=== PATIENT | female | born 1990 ===

== ENCOUNTER 2017-10-04 18:28 | Emergency (ER) | payer SELFPAY ==
[2017-10-04 18:36] VITALS: BMI 32.3
[2017-10-04 18:40] VITALS: BP 126/85; PULSE 86; RESP 18; TEMP 97.9; O2SAT 100
[2017-10-04] MEDS ORDERED: Lidocaine Hydrochloride 5 ML INJ ONE (19:17)
[2017-10-04] MEDS ORDERED: Tdap Vaccine 0.5 ml Vial (10-64 yrs) IM ONE ×2 (19:19→19:33)
[2017-10-04] MEDS ORDERED: Bacitracin 500 Units/gm Oint Foilpak UD TOP ONE (19:19)
[2017-10-04] MEDS ORDERED: Bacitracin 500 Units/gm Oint Foilpak UD ONE (19:33)
--- NOTE | 2017-10-04 20:08 | C.PDOC ---
History Of Present Illness 27 year old female presents to the ED for evaluation of a laceration. Patient reports she sustained a laceration when she accidentally cut her left middle finger today. Patient denies other injury, fever, chills, weakness, numbness. Time Seen by Provider: 10/04/17 19:07 Chief Complaint (Nursing): Abnormal Skin Integrity History Per: Patient History/Exam Limitations: no limitations Current Symptoms Are (Timing): Still Present Location Of Injury: Left: Hand Quality Of Symptoms: Painful Recent travel outside of the [place]: No Additional History Per: Patient Past Medical History Reviewed: Historical Data, Nursing Documentation, Vital Signs Vital Signs: Last Vital Signs Temp 97.9 F 10/04/17 18:36 Pulse 86 10/04/17 18:36 Resp 18 10/04/17 18:36 BP 126/85 10/04/17 18:36 Pulse Ox 100 10/04/17 20:12 - Medical History PMH: No Chronic Diseases Surgical History: No Surg Hx Family History: States: Unknown Family Hx - Social History Hx Alcohol Use: No Hx Substance Use: No - Immunization History Hx Tetanus Toxoid Vaccination: No Hx Influenza Vaccination: No Hx Pneumococcal Vaccination: No Review Of Systems Constitutional: Negative for: Fever, Chills Cardiovascular: Negative for: Chest Pain, Palpitations Respiratory: Negative for: Cough, Shortness of Breath Gastrointestinal: Negative for: Nausea, Vomiting, Abdominal Pain Musculoskeletal: Positive for: Hand Pain Skin: Positive for: Other (laceration) Neurological: Negative for: Weakness, Numbness Physical Exam - Physical Exam Appears: Non-toxic, No Acute Distress Skin: Normal Color, Warm, Dry Head: Atraumatic, Normacephalic Eye(s): bilateral: Normal Inspection Extremity: Normal ROM, No Tenderness, Capillary Refill (< 2 seconds), No Swelling, Other (1.5 cm laceration to left anterior middle finger) Pulses: Left Radial: Normal, Right Radial: Normal Neurological/Psych: Oriented x3, Normal Speech, Normal Motor, Normal Sensation Gait: Steady ED Course And Treatment O2 Sat by Pulse Oximetry: 100 Laceration - Laceration Repair left middle finger Wound Length (In cm): 1.5 Description Of Wound: Linear Wound Cleansed With: Betadine, Sterile Saline Anesthesia: Lidocaine 1% Wound Examination: Irrigated With Saline, No FB With Wound Exploration, No Tendon Injury With Wound Exploration Wound Closure: Suture (three) Suture Technique And Material Used: Interrupted, Nylon (4-o) Wound Complexity: Simple Medical Decision Making Medical Decision Making: Plan: * tetanus immunization * bacitracin Disposition - Disposition Disposition: HOME/ ROUTINE Disposition Time: 20:24 Condition: GOOD Additional Instructions: Wash the wound twice a day, starting on Wednesday. After washing apply bacitracin. sutures to be removed within 7-10 days. return if worsened. Prescriptions: Bacitracin Ointment [Bacitracin] 30 gm TOP BID #1 tube Cephalexin [Keflex] 1,000 mg PO BID #28 capsule Instructions: Laceration Repair Forms: [employer] (Azeri) Print Language: NAMIBIAN - Clinical Impression Clinical Impression: Laceration of finger - PA / CONFERENCE SERVICES DIRECTOR / Resident Statement MD/DO has reviewed & agrees with the documentation as recorded. - Scribe Statement The provider has reviewed the documentation as recorded by the Scribe Zackery Staley All medical record entries made by the Scribe were at my direction and personally dictated by me. I have reviewed the chart and agree that the record accurately reflects my personal performance of the history, physical exam, medical decision making, and the department course for this patient. I have also personally directed, reviewed, and agree with the discharge instructions and disposition.
== END 2017-10-04 20:32 | disposition home or self-care (01) ==
LOC: C.ER 18:28
DX: S61.213A Laceration without foreign body of left middle finger without damage to nail, initial encounter (principal); W26.0XXA Contact with knife, initial encounter; Y93.G3 Activity, cooking and baking

== ENCOUNTER 2017-10-11 14:54 | Emergency (ER) | payer OTHER ==
[2017-10-11 14:54] VITALS: BMI 32.3
[2017-10-11 15:05] VITALS: BP 122/71; PULSE 88; RESP 20; TEMP 98; O2SAT 99
--- NOTE | 2017-10-11 15:18 | C.PDOC ---
History Of Present Illness 27 y/o female presents to ED for suture removal from left 3rd finger placed 1 week ago after sustaining laceration. Patient denies new injury, numbness, weakness or any other complaints at this time. Time Seen by Provider: 10/11/17 15:09 Chief Complaint (Nursing): Suture/Staple Removal History Per: Patient History/Exam Limitations: no limitations Onset/Duration Of Symptoms: Days Ago Current Symptoms Are (Timing): Still Present Past Medical History Reviewed: Historical Data, Nursing Documentation, Vital Signs Vital Signs: Last Vital Signs Temp 98 F 10/11/17 15:02 Pulse 88 10/11/17 15:02 Resp 20 10/11/17 15:02 BP 122/71 10/11/17 15:02 Pulse Ox 99 10/11/17 15:25 - Medical History PMH: No Chronic Diseases Surgical History: No Surg Hx Family History: States: No Known Family Hx - Social History Hx Alcohol Use: No Hx Substance Use: No - Immunization History Hx Tetanus Toxoid Vaccination: No Hx Influenza Vaccination: No Hx Pneumococcal Vaccination: No Review Of Systems Musculoskeletal: Positive for: Hand Pain Skin: Negative for: Rash, Bruising Neurological: Negative for: Weakness, Numbness Physical Exam - Physical Exam Appears: Non-toxic, No Acute Distress Skin: Warm, Dry, No Rash Head: Atraumatic, Normacephalic, Other (3 sutures removed from left 3rd finger. ) Eye(s): bilateral: Normal Inspection Oral Mucosa: Moist Extremity: Normal ROM, Capillary Refill (<2 seconds), No Deformity Pulses: Left Radial: Normal Neurological/Psych: Oriented x3, Normal Motor, Normal Sensation ED Course And Treatment O2 Sat by Pulse Oximetry: 99 (RA) Pulse Ox Interpretation: Normal Disposition - Disposition Referrals: [facility] Pau Cordova, [Non-Staff] - Disposition: HOME/ ROUTINE Disposition Time: 15:15 Condition: GOOD Additional Instructions: FRITZ VARMA, thank you for letting us take care of you today. Your provider was Guy Lance DO and you were treated for WOUND CHECK. The emergency medical care you received today was directed at your acute symptoms. If you were prescribed any medication, please fill it and take as directed. It may take several days for your symptoms to resolve. Return to the Emergency Department if your symptoms worsen, do not improve, or if you have any other problems. Please contact your doctor or call one of the physicians/clinics you have been referred to that are listed on the Patient Visit Information form that is included in your discharge packet. Bring any paperwork you were given at discharge with you along with any medications you are taking to your follow up visit. Our treatment cannot replace ongoing medical care by a primary care provider outside of the emergency department. Thank you for allowing the [facility] team to be part of your care today. Follow up with your primary care doctor if you have any concerns. Instructions: Stitches Removal Forms: [employer] (Ukrainian) - Clinical Impression Clinical Impression: Removal of suture - Scribe Statement The provider has reviewed the documentation as recorded by the Scribe Konstantin Harvey All medical record entries made by the Micheleibvanessa were at my direction and personally dictated by me. I have reviewed the chart and agree that the record accurately reflects my personal performance of the history, physical exam, medical decision making, and the department course for this patient. I have also personally directed, reviewed, and agree with the discharge instructions and disposition.
== END 2017-10-11 15:19 | disposition home or self-care (01) ==
LOC: C.ER 14:54
DX: Z48.02 Encounter for removal of sutures (principal)

== ENCOUNTER 2018-02-12 11:32 | Emergency (ER) | payer OTHER ==
[2018-02-12 11:33] VITALS: BMI 32.3
[2018-02-12 11:42] VITALS: BP 128/84; PULSE 80; RESP 18; TEMP 97.8; O2SAT 99
--- NOTE | 2018-02-12 12:18 | C.PDOC ---
History Of Present Illness 27 year old female presents to the ED for evaluation of right leg injury sustained 5 days ago. The patient reports she was walking down the stairs when she miss-stepped and fell down the stairs resulting in her current injuries. Afterwards she noticed pain, swelling and bruising that did not get better prompting ED visit. Admits to taking Tylenol with some relief in her symptoms. Denies fever, LOC, other injuries, numbness, tingling, and any other associated symptoms. Time Seen by Provider: 02/12/18 12:05 Chief Complaint (Nursing): Lower Extremity Problem/Injury History Per: Patient History/Exam Limitations: no limitations Onset/Duration Of Symptoms: Days Current Symptoms Are (Timing): Still Present - Hip Description Of Injury: Fell (down the stairs. ) Past Medical History Reviewed: Historical Data, Nursing Documentation, Vital Signs Vital Signs: Last Vital Signs Temp 97.8 F 02/12/18 11:40 Pulse 80 02/12/18 11:40 Resp 18 02/12/18 11:40 BP 128/84 02/12/18 11:40 Pulse Ox 99 02/12/18 11:40 Family History: States: Unknown Family Hx - Social History Hx Alcohol Use: No Hx Substance Use: No - Immunization History Hx Tetanus Toxoid Vaccination: No Hx Influenza Vaccination: No Hx Pneumococcal Vaccination: No Review Of Systems Constitutional: Negative for: Fever, Other (other injuries. ) Musculoskeletal: Positive for: Leg Pain (right left pain, swelling, and bruis ing. ) Neurological: Negative for: Weakness, Numbness, Incoordination, Other (LOC) Physical Exam - Physical Exam Appears: Well, Non-toxic, No Acute Distress Skin: Normal Color, Warm, Dry, Ecchymosis (to the medial right ankle. ), Other (superficial abrasion just below the right knee.) Head: Atraumatic, Normacephalic Eye(s): bilateral: Normal Inspection Oral Mucosa: Moist Neck: Normal ROM, Supple Chest: Symmetrical Cardiovascular: Rhythm Regular, No Murmur Respiratory: Normal Breath Sounds, No Rales, No Rhonchi, No Wheezing Gastrointestinal/Abdominal: Normal Exam, Soft, No Tenderness Extremity: Normal ROM (of the right knee and right ankle. ), Tenderness (to the right leg. ), Swelling (mild swelling to the right leg. ) Pulses: Left Dorsalis Pedis: Normal, Right Dorsalis Pedis: Normal Neurological/Psych: Oriented x3, Normal Speech, Normal Motor, Normal Sensation, Normal Reflexes ED Course And Treatment O2 Sat by Pulse Oximetry: 99 (RA) Pulse Ox Interpretation: Normal - Other Rad RT TIB/FIB x-ray X-Ray: Viewed By Me, Read By Radiologist Interpretation: FINDINGS: BONES: No fracture or destructive lesion. JOINT SPACES: Unremarkable. OTHER FINDINGS: None. IMPRESSION: No acute fracture. RT ankle x-ray X-Ray: Viewed By Me, Read By Radiologist Interpretation: FINDINGS: BONES: Bone alignment and mineralization are normal. There is no acute displaced fracture or bone destruction. There is a prominent plantar calcaneal spur. There is a dorsal calcaneal enthesophyte. JOINTS: Normal. No osteoarthritis. Ankle mortise maintained. Talar dome intact. SOFT TISSUES: Normal. OTHER FINDINGS: None. IMPRESSION: No acute displaced fracture or dislocation. Medical Decision Making Medical Decision Making: Plan: -RT Ankle x-ray RT tibia fibula x-ray Progress/Update: Patient stable for discharge home. Prescribed Motrin. Advised to return to the ED if symptoms worsen. Disposition Counseled Patient/Family Regarding: Diagnosis, Need For Followup, Rx Given - Disposition Referrals: Dax Sweeney MD [Staff Provider] - Disposition: HOME/ ROUTINE Disposition Time: 12:40 Condition: STABLE Additional Instructions: Tu radiografa era normal, sin fracturas. Por favor aplique hielo en el maegan 15 minutos sasha veces al da. [place] Motrin segn sea necesario para el dolor cada 6 horas, con alimentos para no alterar el estmago. Contine con la ortopedia si el dolor persiste blake luis enrique semana. Prescriptions: Ibuprofen [Motrin] 600 mg PO Q8 #30 tab Instructions: Ankle Sprain (DC) Print Language: UZBEK - POA Present On Arrival: None - Clinical Impression Clinical Impression: Ankle sprain, Contusion of leg - PA / ESTHETICIAN MAKEUP ARTIST / Resident Statement MD/DO has reviewed & agrees with the documentation as recorded. - Scribe Statement The provider has reviewed the documentation as recorded by the Scribe (Shaina Burnett) All medical record entries made by the Scribe were at my direction and personally dictated by me. I have reviewed the chart and agree that the record accurately reflects my personal performance of the history, physical exam, medical decision making, and the department course for this patient. I have also personally directed, reviewed, and agree with the discharge instructions and disposition.
--- NOTE | 2018-02-12 12:55 | RAD ---
Date of service: 02/12/2018 PROCEDURE: Right Ankle Radiographs. HISTORY: pain s.p fall COMPARISON: None available. FINDINGS: BONES: Bone alignment and mineralization are normal. There is no acute displaced fracture or bone destruction. There is a prominent plantar calcaneal spur. There is a dorsal calcaneal enthesophyte. JOINTS: Normal. No osteoarthritis. Ankle mortise maintained. Talar dome intact SOFT TISSUES: Normal. OTHER FINDINGS: None. IMPRESSION: No acute displaced fracture or dislocation.
--- NOTE | 2018-02-12 12:56 | RAD ---
Date of service: 02/12/2018 PROCEDURE: Radiographs of the right tibia and fibula. HISTORY: pain s.p fall COMPARISON: None available TECHNIQUE: Frontal and lateral views obtained. FINDINGS: BONES: No fracture or destructive lesion. JOINT SPACES: Unremarkable. OTHER FINDINGS: None. IMPRESSION: No acute fracture.
== END 2018-02-12 12:46 | disposition home or self-care (01) ==
LOC: C.ER 11:32
DX: S93.401A Sprain of unspecified ligament of right ankle, initial encounter (principal); S80.11XA Contusion of right lower leg, initial encounter; W10.9XXA Fall (on) (from) unspecified stairs and steps, initial encounter

== ENCOUNTER 2018-07-06 18:45 | Emergency (ER) | payer OTHER ==
[2018-07-06 18:46] VITALS: BMI 32.3
[2018-07-06 19:19] VITALS: BP 113/65; PULSE 78; RESP 20; TEMP 98.5; O2SAT 100
--- NOTE | 2018-07-06 19:33 | C.PDOC ---
History Of Present Illness 28 year old female presents to the ED c/o small abscess to her left breast for the past 2 days. Patient denies fever, chills, rash, drainage, direct trauma. Time Seen by Provider: 07/06/18 19:21 Chief Complaint (Nursing): Breast Problem History Per: Patient History/Exam Limitations: no limitations Onset/Duration Of Symptoms: Days (2) Current Symptoms Are (Timing): Still Present Recent travel outside of the [place]: No Additional History Per: Patient Past Medical History Reviewed: Historical Data, Nursing Documentation, Vital Signs Vital Signs: Last Vital Signs Temp 98.5 F 07/06/18 19:16 Pulse 78 07/06/18 19:16 Resp 20 07/06/18 19:16 BP 113/65 07/06/18 19:16 Pulse Ox 100 07/06/18 19:16 Primary Care Provider: Raven Herzog - Medical History PMH: No Chronic Diseases Surgical History: No Surg Hx Family History: States: Unknown Family Hx - Social History Hx Alcohol Use: Yes Hx Substance Use: No - Immunization History Hx Tetanus Toxoid Vaccination: No Hx Influenza Vaccination: No Hx Pneumococcal Vaccination: No Review Of Systems Constitutional: Negative for: Fever, Chills, Weakness Respiratory: Negative for: Cough Gastrointestinal: Negative for: Vomiting, Diarrhea Musculoskeletal: Negative for: Back Pain Skin: Positive for: Other (abscess). Negative for: Rash Neurological: Negative for: Weakness, Numbness, Headache Physical Exam - Physical Exam Appears: Well, Non-toxic, No Acute Distress Skin: Normal Color, Warm, Dry Head: Atraumatic, Normacephalic Eye(s): bilateral: Normal Inspection (no scleral icterus), PERRL, EOMI Nose: Normal Neck: Normal ROM, Supple Chest: Symmetrical, Other (1 cm area of tender mass at the left side of the areola. No induration, drainage.) Cardiovascular: Rhythm Regular Respiratory: No Accessory Muscle Use, Other (normal inspiratory effort) Neurological/Psych: Oriented x3, Normal Speech ED Course And Treatment O2 Sat by Pulse Oximetry: 100 (ON RA) Pulse Ox Interpretation: Normal Medical Decision Making Medical Decision Making: Plan: * Bactrim 1 tab PO Patient was advised to put warm compresses to the area, and take antibiotics prescribed. Disposition Counseled Patient/Family Regarding: Diagnosis, Need For Followup - [facility]position [facility] Disposition: HOME/ ROUTINE Disposition Time: 19:33 Condition: STABLE Prescriptions: Sulfamethoxazole/Trimethoprim [Bactrim DS 800 mg-160 mg] 1 tab PO BID 7 Days tab Instructions: Boil (DC) Forms: Gen Discharge Inst Comoran, [employer] (Comoran) Print Language: [place] ISLANDER - Clinical Impression Clinical Impression: Abscess of breast - PA / HOUSECALLS NURSE / Resident Statement MD/DO has reviewed & agrees with the documentation as recorded. - Scribe Statement The provider has reviewed the documentation as recorded by the Scribe Zackery Staley All medical record entries made by the Allie were at my direction and personally dictated by me. I have reviewed the chart and agree that the record accurately reflects my personal performance of the history, physical exam, medical decision making, and the department course for this patient. I have also personally directed, reviewed, and agree with the discharge instructions and disposition.
[2018-07-06] MEDS ORDERED: Tmp-Smz 800 mg-160 mg DS Tab PO STA (19:34)
[2018-07-06] MEDS ORDERED: Tmp-Smz 800 mg-160 mg DS Tab ONE (19:40)
== END 2018-07-06 19:51 | disposition home or self-care (01) ==
LOC: C.ER 18:45
DX: N61.1 Abscess of the breast and nipple (principal)

== ENCOUNTER 2018-07-09 14:08 | Emergency (ER) | payer OTHER ==
[2018-07-09 14:09] VITALS: BMI 32.3
[2018-07-09 14:16] VITALS: BP 112/76; PULSE 84; TEMP 98.8; O2SAT 98
[2018-07-09 15:10] LABS: BASO # 0.1 K/uL (0.0-0.2); BASO % 1.3 % (0.0-2.0); EOS # 0.6 K/uL (0.0-0.7); EOS % 6.7 % (0.0-4.0); HEMOGLOBIN 15.2 g/dL (11.0-16.0); LYMPH # 3.2 K/uL (1.0-4.3); LYMPH % 36.1 % (20.0-40.0); MEAN CELL VOLUME 91.1 fL (81.0-99.0); MEAN CORPUSCULAR HEMOGLOBIN 32.1 pg (27.0-31.0); MEAN CORPUSCULAR HGB CONC 35.3 g/dL (33.0-37.0); MEAN PLATELET VOLUME 9.3 fL (7.2-11.7); MONO # 0.6 K/uL (0.0-0.8); MONO % 6.5 % (0.0-10.0); NEUT # 4.4 K/uL (1.8-7.0); NEUT % 49.4 % (50.0-75.0); RBC 4.73 Mil/uL (3.80-5.20); RED CELL DISTRIBUTION WIDTH 13.1 % (11.5-14.5); WHITE BLOOD COUNT 8.9 K/uL (4.8-10.8)
[2018-07-09 15:26] LABS: ALB/GLOB RATIO 1.3 (1.0-2.1); ALT/SGPT 140 U/L (9-52); AST/SGOT 95 U/L (14-36); BLOOD UREA NITROGEN 9 mg/dL (7-17); CALCIUM 9.2 mg/dl (8.6-10.4); GFR NON-AFRICAN AMERICAN > 60
--- NOTE | 2018-07-09 15:35 | CP.PCM.CON ---
History of Present Illness - History of Present Illness History of Present Illness: General Surgery Consult for Dr. Shaver Reason for consult: left breast lesion 28 F with PMH that includes DM presents to [facility] for complaint of left breast lesion. Patient seen and evaluated in the ED. Patient states that she has had this lesion or abscess for 1 week. Patient was seen in ED on 07/07 and was discharged with Bactrim and follow up. Patient states no improvement. She returned for pain and persistence of abscess. Denies fever/chills, cp, SOB, drainage, abd pain, n/v/d, diarrhea, constipation, other skin lesions. PMH: DM PSH: denies ALL: NKDA Social: smoking 5 cigarettes per day for over 10 years, social EtOH, denies illict drug use Review of Systems - Review of Systems All systems: reviewed and no additional remarkable complaints except (as per H PI) Past Patient History - Infectious Disease Hx of Infectious Diseases: None - Past Social History Smoking Status: Light Smoker < 10 Cigarettes Daily - ENDOCRINE/METABOLIC Hx Endocrine Disorders: Yes Hx Diabetes Mellitus Type 2: Yes - PSYCHIATRIC Hx Substance Use: No - SURGICAL HISTORY Hx Surgeries: No - ANESTHESIA Hx Anesthesia: No Meds Home Medications: Home Medication List Medication Instructions Recorded Confirmed Type Sulfamethoxazole/Trimethoprim 1 tab PO BID #6 tab 07/09/18 Rx [Bactrim DS 800 mg-160 mg] Allergies/Adverse Reactions: Allergies Allergy/AdvReac Type Severity Reaction Status Date / Time No Known Allergies Allergy Verified 07/09/18 14:15 Physical Exam - Constitutional Appears: No Acute Distress - Head Exam Head Exam: ATRAUMATIC, NORMOCEPHALIC - Eye Exam Eye Exam: EOMI, Normal appearance Pupil Exam: PERRL - ENT Exam ENT Exam: Mucous Membranes Moist - Respiratory Exam Respiratory Exam: NORMAL BREATHING PATTERN - Cardiovascular Exam Cardiovascular Exam: REGULAR RHYTHM - GI/Abdominal Exam GI & Abdominal Exam: Normal Bowel Sounds, Soft. absent: Tenderness - Extremities Exam Extremities exam: Positive for: normal capillary refill, pedal pulses present - Back Exam Back exam: absent: CVA tenderness (L), CVA tenderness (R) - Neurological Exam Neurological exam: Alert, Oriented x3 - Psychiatric Exam Psychiatric exam: Normal Affect, Normal Mood - Skin Skin Exam: Dry, Intact, Warm Additional comments: multiple nodules palpated in Left breast palpable l axillary lymph node small 0.5 x 0.5 cm fluid filled breast lesion at 3 oclock position adjacent to nipple Results - Vital Signs Recent Vital Signs: Last Vital Signs Temp 98.8 F 07/09/18 14:12 Pulse 84 07/09/18 14:12 Resp 16 07/09/18 14:12 BP 112/76 07/09/18 14:12 Pulse Ox 98 07/09/18 14:12 - Labs Result Diagrams: 07/09/18 15:03 07/09/18 15:03 Labs: Laboratory Results - last 24 hr 07/09/18 07/09/18 15:03 15:03 WBC 8.9 RBC 4.73 Hgb 15.2 Hct 43.1 MCV 91.1 MCH 32.1 H MCHC 35.3 RDW 13.1 Plt Count 323 MPV 9.3 Neut % (Auto) 49.4 L Lymph % (Auto) 36.1 Wolfe % (Auto) 6.5 Eos % (Auto) 6.7 H Baso % (Auto) 1.3 Neut # (Auto) 4.4 Lymph # (Auto) 3.2 Wolfe # (Auto) 0.6 Eos # (Auto) 0.6 Baso # (Auto) 0.1 Sodium 135 Potassium 4.1 Chloride 101 Carbon Dioxide 24 Anion Gap 14 BUN 9 Creatinine 0.5 L Est GFR ( Amer) > 60 Est GFR (Non-Af Amer) > 60 Random Glucose 213 H Calcium 9.2 Total Bilirubin 0.7 AST 95 H ALT 140 H Alkaline Phosphatase 76 Total Protein 7.2 Albumin 4.0 Globulin 3.2 Albumin/Globulin Ratio 1.3 Assessment & Plan - Assessment and Plan (Free Text) Assessment: 28 F who presents with small fluid filled breast lesion Plan: -f/u Breast US -Aspirated at bedside -wound culture sent -bactrim for 10 days -tylenol for pain -f/u with Dr. Shaver or at breast clinic -Discussed with Dr. Sivakumar Fink PGY2 - Date & Time Date: 07/09/18 Time: 15:37
--- NOTE | 2018-07-09 16:09 | C.PDOC ---
History Of Present Illness 28 y/o female pt presents to the ER c/o painful lump on left breast. Pt reports she was seen x2 days ago and was given Bactrim prescription and instructed to come back if sx is worse or does not get better. Pt is currently on Bactrim. She denies any fever, chills, associated sx or complaints at this time. Time Seen by Provider: 07/09/18 14:40 Chief Complaint (Nursing): Abnormal Skin Integrity History Per: Patient History/Exam Limitations: no limitations Onset/Duration Of Symptoms: Days Current Symptoms Are (Timing): Still Present Past Medical History Reviewed: Historical Data, Nursing Documentation, Vital Signs Vital Signs: Last Vital Signs Temp 98.8 F 07/09/18 14:12 Pulse 84 07/09/18 14:12 Resp 16 07/09/18 14:12 BP 112/76 07/09/18 14:12 Pulse Ox 98 07/09/18 14:12 Primary Care Provider: Raven Herzog Family History: States: Unknown Family Hx - Social History Hx Alcohol Use: Yes Hx Substance Use: No - Immunization History Hx Tetanus Toxoid Vaccination: No Hx Influenza Vaccination: No Hx Pneumococcal Vaccination: No Review Of Systems Except As Marked, All Systems Reviewed And Found Negative. Constitutional: Negative for: Fever, Chills Skin: Positive for: Other (small painfull lump on left breast ) Physical Exam - Physical Exam Appears: Non-toxic, No Acute Distress Skin: Warm, Dry Lymphatic: Other (mild axillary lymphadenopathy ) Chest: Other (1 cm fluctating abscess on lateral side of areola; no drainage, open wound or obvious mass. ) Neurological/Psych: Oriented x3, Normal Speech, Normal Cognition ED Course And Treatment - Laboratory Results Result Diagrams: 07/09/18 15:03 07/09/18 15:03 Lab Results: Total Bilirubin 0.7 mg/dL (0.2-1.3) 07/09/18 15:03 AST 95 U/L (14-36) H 07/09/18 15:03 ALT 140 U/L (9-52) H 07/09/18 15:03 Alkaline Phosphatase 76 U/L (38-126) 07/09/18 15:03 Total Protein 7.2 g/dL (6.3-8.3) 07/09/18 15:03 Albumin 4.0 g/dL (3.5-5.0) 07/09/18 15:03 Globulin 3.2 gm/dL (2.2-3.9) 07/09/18 15:03 Albumin/Globulin Ratio 1.3 (1.0-2.1) 07/09/18 15:03 O2 Sat by Pulse Oximetry: 98 (RA) Pulse Ox Interpretation: Normal Progress Note: Consult to assistant professor surgical technology was made to Dr. Shaver. He requested blood work and US. Resident was present during pt US. Abscess was aspirated, purulent d/c was present. D/c was sent to lab and requested to prescribe 1 more dose of bactrim to make it a total of 10 days. Pt was instructed to f/u with Dr. Baron in the clinic. Disposition - Disposition Referrals: at [facility] [Outside] Disposition: HOME/ ROUTINE Disposition Time: 16:05 Condition: STABLE Additional Instructions: Follow up with Clinic with the general software licensing specialist. Return to ED if feel worse. Please take Bactrim DS for 10 days. Prescriptions: Sulfamethoxazole/Trimethoprim [Bactrim DS 800 mg-160 mg] 1 tab PO BID #6 tab Instructions: Skin Abscess Forms: [employer] (Danish) Print Language: SETSWANA - Clinical Impression Clinical Impression: Breast abscess - PA / BOOKKEEPING MACHINE OPERATOR / Resident Statement / has reviewed & agrees with the documentation as recorded. - Scribe Statement The provider has reviewed the documentation as recorded by the Allie Dunn Do All medical record entries made by the Scribe were at my direction and personally dictated by me. I have reviewed the chart and agree that the record accurately reflects my personal performance of the history, physical exam, medical decision making, and the department course for this patient. I have also personally directed, reviewed, and agree with the discharge instructions and disposition.
[2018-07-09 16:16] VITALS: RESP 20
--- NOTE | 2018-07-09 16:38 | US ---
Date of service: 07/09/2018 PROCEDURE: Limited emergency ultrasound examination of the left breast to evaluate for abscess HISTORY: left breast ? abscess COMPARISON: No prior similar study available for comparison TECHNIQUE: Limited ultrasound examination of the left breast was obtained at emergency basis to evaluate for abscess formation. The left axilla was also evaluated. FINDINGS: There is subcutaneous fluid collection noted at the left breast Periareolar region at 4 o'clock position measures 1.3 x 0.6 centimeter may represent subcutaneous abscess. The possibility of tumor is not totally excluded. There is posterior enhancement noted at this presumed abscess formation. The evaluation of the left axilla demonstrate enlarged lymph nodes. There is also subcutaneous hypoechoic possible small cyst at the left axilla measures 0.9 x 0.5 x 1.2 centimeter. IMPRESSION: Limited evaluation of the left breast was performed to evaluate for abscess formation in this patient which was referred from the emergency room. Subcutaneous hypoechoic structure in the left breast periareolar region at 4 o'clock may represent abscess formation. Two enlarged adjacent left axillary lymph nodes. If clinically warranted further evaluation by dedicated MRI or breast ultrasound may be obtained.
== END 2018-07-09 16:16 | disposition home or self-care (01) ==
LOC: C.ER 14:08
DX: N61.1 Abscess of the breast and nipple (principal)